=== PATIENT | female | born 1950 | race Caucasian/White ===

== ENCOUNTER → 2016-06-29 | Outpatient (CLI) | payer MEDICARE ==
[~2016-06-29] MED LIST: ASCO10004 PO; CALC250T PO; ESTRADIOL PO; HYDR25TA6 PO; LEVO100T5 PO; LISI-170 PO; METF500T4 PO; TESTOS PO; TIZA6CAP PO; VITA1CAP PO; magnesium PO; potassium PO
[2016-06-29 16:39] LABS: ASPARTATE AMINO TRANSFERASE 22 U/L (15-37); BLOOD UREA NITROGEN 15 mg/dL (7-18)
== END | disposition home or self-care (01) ==
LOC: STAR 15:36
PROVIDERS: ATTEND Surgery
DX: Z01.818 Encounter for other preprocedural examination (principal)
CPT/HCPCS: 36415; 80053; 93005

== ENCOUNTER 2016-07-10 09:03 | Day surgery (SDC) | payer MEDICARE ==
[2016-06-29 15:43] VITALS: BP 114/75
[~2016-07-10] VITALS: Ht 162.6 cm; Wt 85.5 kg
[~2016-07-10 09:03] MED LIST changes: +BUPIVACAINE/PF-EPI 0.5% 1:200K ONE
[2016-07-10] MEDS ORDERED: LIDOCAINE 1%, 2ML ONE (09:28)
[2016-07-10] MEDS ORDERED: LACTATED RINGERS 1,000 ML IV SCH (09:30)
[2016-07-10] MEDS ORDERED: LIDOCAINE 1%, 2ML SQ PRN (09:30)
[2016-07-10] MEDS ORDERED: MIDAZOLAM 1 MG/ML, 2ML ONE (09:34)
[2016-07-10] MEDS ORDERED: FENTANYL PF 100 MCG/2ML ONE (09:34)
[2016-07-10] MEDS ORDERED: ONDANSETRON 2MG/ML, 2ML ONE (10:29)
[2016-07-10] MEDS ORDERED: METOCLOPRAMIDE 5 MG/ML, 2ML ONE (10:29)
[2016-07-10] MEDS ORDERED: CEFAZOLIN 1,000 MG ONE (10:29)
[2016-07-10] MEDS ORDERED: PROPOFOL 10 MG/ML, 20ML ONE (10:29)
[2016-07-10] MEDS ORDERED: ALBUTEROL SULFATE 2.5 MG/3 ML NPPB PRN (10:30)
[2016-07-10] MEDS ORDERED: PROMETHAZINE 25 MG/ML, 1ML IV PRN (10:30)
[2016-07-10] MEDS ORDERED: LABETALOL 5MG/ML, 20ML IV PRN (10:30)
[2016-07-10] MEDS ORDERED: HYDROmorphone 1 MG/ML, 1ML IV PRN (10:30)
[2016-07-10] MEDS ORDERED: FENTANYL PF 100 MCG/2ML IV PRN (10:30)
[2016-07-10] MEDS ORDERED: hydrALAzine 20 MG/ML, 1ML IV PRN (10:30)
[2016-07-10] MEDS ORDERED: EPHEDRINE 50 MG/ML, 1ML IVPush PRN (10:30)
[2016-07-10] MEDS ORDERED: OXYcodone 5 MG/5 ML ORAL.SOL UDC PO PRN (10:30)
[2016-07-10] MEDS ORDERED: ACETAMINOPHEN 325 MG TABLET PO PRN (10:30)
[2016-07-10] MEDS ORDERED: METOPROLOL 1 MG/ML, 5ML IV PRN (10:30)
[2016-07-10] MEDS ORDERED: ONDANSETRON 2MG/ML, 2ML IVPush PRN (10:30)
[2016-07-10] MEDS ORDERED: ACETAMINOPHEN 325 MG TABLET ONE (11:14)
[2016-07-10] MEDS ORDERED: OXYcodone 5 MG/5 ML ORAL.SOL UDC ONE (11:14)
[2016-07-10] MEDS ORDERED: ACETAMINOPHEN 650 MG/20.3 ML UDC ONE (11:14)
== END 2016-07-10 13:25 | disposition home or self-care (01) ==
LOC: OUT 09:03
PROVIDERS: ATTEND Surgery
DX: D24.2 Benign neoplasm of left breast (principal); N64.1 Fat necrosis of breast; I10 Essential (primary) hypertension; E11.9 Type 2 diabetes mellitus without complications; E03.9 Hypothyroidism, unspecified; E78.5 Hyperlipidemia, unspecified; E78.00 Pure hypercholesterolemia, unspecified; Z90.710 Acquired absence of both cervix and uterus; Z82.61 Family history of arthritis; Z83.3 Family history of diabetes mellitus; Z82.49 Family history of ischemic heart disease and other diseases of the circulatory system; Z82.0 Family history of epilepsy and other diseases of the nervous system; Z72.89 Other problems related to lifestyle; Z87.891 Personal history of nicotine dependence
CPT/HCPCS: 19301; 82962; 88307; J0690; J2250; J2405; J2704; J2765; J3010; J3490; J7120

== ENCOUNTER → 2016-07-10 | Outpatient (CLI) | payer MEDICARE | END | disposition home or self-care (01) | LOC: CFH 07:39 | PROVIDERS: ATTEND Surgery | DX: Z01.818 Encounter for other preprocedural examination (principal); R92.8 Other abnormal and inconclusive findings on diagnostic imaging of breast; R92.2 Inconclusive mammogram | CPT/HCPCS: 19281 ==